=== PATIENT | female | born 1950 | race Caucasian/White ===

== ENCOUNTER 2016-09-02 09:27 | Inpatient (IN) ==
[2016-09-02] MEDS ORDERED: ONDANSETRON 4 MG/2 ML VIAL IV PRN (12:08)
[2016-09-02] MEDS ORDERED: ZALEPLON 5 MG CAPSULE PO PRN (12:08)
[2016-09-02] MEDS ORDERED: MAGNESIUM HYDROXIDE SUSP 30 ML UDCUP PO PRN (12:08)
[2016-09-02] MEDS ORDERED: MORPHINE 2 MG/1 ML SYRINGE IV PRN (12:08)
--- NOTE | 2016-09-02 14:17 | EKG Report ---
Stationary ECG Study [facility] Test Date: 09/02/2016 2:18:11 PM Pat Name: NATHAN JAMES Department: Room: 336 Gender: F Etl Database Developer: : [id number] Requested by: Zaheer Olguin Order Number: [id number] Reading MD: SANIA JEAN Intervals [place] Rate: 61 P: 61 DE: 146 QRS: 41 QRSD: 114 T: 68 QT: 479 QTc: 482 Interpretive Statements SINUS RHYTHM PROBABLE INFERIOR MYOCARDIAL INFARCTION, PROBABLY OLD WITH POSTERIOR EXTENSION Electronically Signed On 09-02-16 17:24:06 CDT by SANIA JEAN [email or web address]
[2016-09-02 14:36] LABS: Basophils # 0.1 10*3/uL (0.0-0.2); Basophils % 0.7 % (0.0-0.8); Eosinophils # 0.2 10*3/uL (0.0-0.87); Eosinophils % 2.2 % (0.00-10.9); Hematocrit 34.7 VOL% (35.7-47.0); Immature Granulocytes % 0.4 %; Immature Granulocytes Absolute 0.04 #; Lymphocytes # 2.6 10*3/uL (1.4-4.0); Lymphocytes % 27.4 % (21.3-54.2); Mean Corpuscular HGB Conc 31.7 GM/DL (32-36); Mean Corpuscular Hemoglobin 25 PG (27-34); Mean Corpuscular Volume 79.8 FL (87-102); Mean Platelet Volume 9.1 FL (9.6-12.0); Monocytes # 0.9 10*3/uL (0.11-0.8); Monocytes % 9.5 % (1.7-12.7); Neutrophils # 5.8 10*3/uL (1.4-7.4); Neutrophils % 59.8 % (38.7-73.9); Platelet Count 643 T/CUMM (130-400); Red Blood Count 4.35 MC/CUMM (3.8-5.5); Red Cell Distribution Width 19.4 % (9.3-17.3); White Blood Count 9.6 T/CUMM (4-12)
[2016-09-02 14:46] LABS: PT Patient Result 10.5 SECS
[2016-09-02 15:02] LABS: Alanine Aminotransferase 19 U/L (13-56); Albumin 2.3 G/DL (3.4-5.0); Alkaline Phosphatase 220 U/L (45-117); Aspartate Amino Transferase 21 U/L (0-37); Bilirubin,Total < 0.39 MG/DL (0.2-1.0); Blood Urea Nitrogen 21 MG/DL (7-18); Calcium 8.8 MG/DL (8.5-10.1); Glucose 109 MG/DL (74-106); Osmolality,Calculated 273.1 MOS/KG (273-304); Potassium 3.3 MMOL/L (3.5-5.1); Sodium 135 MMOL/L (136-145); Total Protein 6.4 G/DL (6.4-8.3)
[2016-09-02 15:18] LABS: Apearance,Urine CLOUDY (Clear); Bacteria,Urine Many /HPF (Few); Bilirubin,Urine Negative (Negative); Blood, Urine Moderate mg/dL (Negative); Glucose,Urine (UA) Negative (Negative); Ketones,Urine Negative (Negative); Mucus,Urine Occasional /LPF (Occasional); Nitrite,Urine Negative (Negative); Protein,Urine 100 MG/DL; RBC,Urine 56 /HPF (0-4); Squamous Epithelial Cell,Urine Occasional /HPF (0-10); Urine Color Yellow (Yellow); Urine Specific Gravity 1.012 (1.001-1.035); Urine Urobilinogen < 2.0 EU/DL (0.2-1.0); WBC,Urine 7 /HPF (0-6)
--- NOTE | 2016-09-02 16:17 | Hospitalist Consult Note ---
Assessment and Plan (1) Closed right hip fracture Status: Acute Current Visit: Yes Qualifiers: Encounter type: initial encounter Qualified Code(s): S72.001A - Fracture of unspecified part of neck of right femur, initial encounter for closed fracture (2) Atherosclerotic vascular disease Status: Chronic Assessment and plan: History of left carotid endarterectomy with total occlusion of the right carotid. Possible remote cerebrovascular accident with residual seizure disorder under active treatment. She does have mild cognitive impairment suggesting a possible early vascular dementia. Current Visit: Yes (3) Anemia Status: Chronic Assessment and plan: Mildly diminished hemoglobin level however there appears to be reactive thrombocytosis raising concerns about possible iron deficiency. She does report polypectomy at colonoscopy done approximately 1 year ago but also describes a one-year history of weight loss. Current Visit: Yes History of Present Illness - Consult Narrative History of present illness: Ms. Davidson is a 66 year old female transferred to the orthopedic service. Patient is a somewhat suspect historian but apparently she sustained a fall about 2 months ago records indicate that she apparently had imaging of her pelvis performed in June 2016 without positive finding she states that she was subsequently not able to walk and on reimaging with CT scan on 01 September was found to have a fracture of the right hip. Patient is unclear regarding how she came to fall initially but denies a subsequent fall. She has not been a patient at this facility previously. She is actively treated with lipid- lowering agents. She is on a beta-gurmeet for a "heart problem" with her EKG showing a short MN interval with the patient however denying any palpitations. She has a chronic seizure disorder apparently related to ischemic vascular disease with complete previous left carotid endarterectomy and residual total occlusion of the right carotid. She reports that upper endoscopy approximately a year ago without positive findings and a colonoscopy at the same time with removal of small polyps. She states she has had weight loss of an undetermined amount but denies any melena or hematochezia. At the outside facility the patient showed a microcytic anemia which is remained stable. She has hypokalemia on hydrochlorothiazide. Initially her creatinine was elevated but with rehydration it has normalized. CC: Zaheer Mauricio Jr., - Home Medications and Allergies Home Medications: Home Medications Medication Instructions Recorded Confirmed Type Aspirin [Ecotrin] 81 mg PO DAILY 09/02/16 09/02/16 History Cetirizine Tab [ZyrTEC Tab] 10 mg PO BID PRN 09/02/16 09/02/16 History Clopidogrel Bisulfate [Clopidogrel] 75 mg PO DAILY 09/02/16 09/02/16 History Colesevelam [Welchol] 1,875 mg PO BID 09/02/16 09/02/16 History Cyanocobalamin/Folic AC/Vit B6 [B 1 each PO DAILY 09/02/16 09/02/16 History Complex-Folic Acid Tablet] Gemfibrozil [Gemfibrozil] 600 mg PO BID 09/02/16 09/02/16 History Linaclotide [Linzess] 145 mcg PO DAILY 09/02/16 09/02/16 History Metoprolol Succinate [Metoprolol 25 mg PO BID 09/02/16 09/02/16 History Succinate] Omeprazole [Omeprazole] 40 mg PO DAILY 09/02/16 09/02/16 History Phenytoin ER Cap [Dilantin Cap] 100 mg PO QID 09/02/16 09/02/16 History Potassium Chloride [Potassium 20 meq PO TID 09/02/16 09/02/16 History Chloride] Pravastatin Sodium [Pravastatin 80 mg PO DAILY 09/02/16 09/02/16 History Sodium] Zolpidem Tartrate [Zolpidem 10 mg PO BEDTIME 09/02/16 09/02/16 History Tartrate] cloNIDine HCl [Clonidine HCl] 0.2 mg PO BID PRN 09/02/16 09/02/16 History diazePAM [Diazepam] 10 mg PO BID 09/02/16 09/02/16 History hydroCHLOROthiazide 12.5 mg PO DAILY 09/02/16 09/02/16 History [Hydrochlorothiazide] raNITIdine HCl [Ranitidine HCl] 300 mg PO DAILY 09/02/16 09/02/16 History Allergies/Adverse Reactions: Allergies Allergy/AdvReac Type Severity Reaction Status Date / Time Penicillins Allergy Verified 09/02/16 14:24 Medical,Surgical,& Family Hx - Medical History Cardio: History of: Cerebrovascular Disease (Presumptive remote cerebrovascular accident with residual seizure disorder.), Hypertension Neurology: History of: Seizures Gastrointestinal: History of: Hepatitis (Hepatitis B), Polyps Other: History of: Miscellaneous Medical Problems (Lipid disorder with atherosclerotic vascular disease) - Surgical History Cardiac Surgeries: Sugical HX of: Carotid Endarterectomy (Left sided) Abdominal Surgeries: Surgical HX of: Colonoscopy (1 year ago), EGD (1 year ago) Reproductive Surgeries: Surgical HX of;: Hysterectomy - Social History Smoking Status: Current every day smoker (Approximately 1 pack per day) Frequency of Alcohol Use: None Lives With:: Sibling Functional capacity: independent ambulation - Constitutional Constitutional: Present: weight loss - Cardiovascular Cardiovascular: Absent: chest pain with activity, claudication, dyspnea on exertion, edema, palpitations - Respiratory Respiratory: Absent: cough, hemoptysis, wheezing - Gastrointestinal Gastrointestinal: Present: constipation. Absent: abdominal pain, coffee ground emesis, diarrhea, dysphagia, hematemesis, hematochezia, melena, nausea, vomiting - Genitourinary Genitourinary: Absent: dysuria, hematuria - Psychiatric Psychiatric: Present: confusion, memory loss Exam - Constitutional Vitals: Period Temp Pulse Resp BP Sys/Kirkpatrick Pulse Ox Last 24 Hr 97.7 F-97.8 F 61-63 15-18 140-153/70-80 95-98 General appearance: normal weight - Head Head exam: Present: atraumatic - Neck Neck exam: Absent: lymphadenopathy, thyromegaly - Respiratory Respiratory exam: Present: clear to auscultation bilaterally. Absent: rales, rhonchi, wheezes - Cardiovascular Cardiovascular exam: Present: regular rate and rhythm, other (Diminished pedal pulse right greater than left). Absent: carotid bruit - GI/Abdominal GI/Abdominal exam: Absent: normal bowel sounds, ascites, organomegaly, tenderness - Extremities Exam Extremities exam: Present: other (Marked muscle atrophy). Absent: edema - Neurological Exam Neurological exam: Present: alert, oriented X3 Results - Labs CBC & BMP: 09/02/16 14:23 09/02/16 14:23 Labs: Globulin 4.1 Alkaline phosphatase 220 Urinalysis positive red blood cells and protein - Impressions Short MN interval without delta wave.
[2016-09-02] MEDS: POTASSIUM CHLORIDE INJ 40 MEQ in DEXTROSE 5% LACTATED RINGERS 1,000 ML IV SCH (16:25)
[2016-09-02] MEDS ORDERED: CETIRIZINE 10 MG TABLET PO PRN (16:31)
[2016-09-02 17:45] LABS: % Iron Saturation 7.2 % (18-50)
[2016-09-02] MEDS: PHENYTOIN ER 100 MG CAPSULE PO SCH ×2 (17:52→20:50)
--- NOTE | 2016-09-02 18:29 | Orthopedic History & Physical ---
Assessment and Plan (1) Displaced fracture of right femoral neck Status: Chronic Current Visit: Yes History of Present Illness Chief complaint: Right hip pain History of present illness: Ms. Davidson is a 66 year old female who fell approximately 2 months ago. She states that the initial workup was negative. However because of persistent pain , she was hospitalized and was found to have hypokalemia to 2.3. X-rays during that admission demonstrated displaced femoral neck fracture. She has been transferred for treatment of her displaced femoral neck fracture. The patient has a history of a previous left displaced femoral neck fracture which I treated with a bipolar hemiarthroplasty. She has not had any problems with that hip. She has been able to return to independent ambulation up until 2 months ago. The patient states that she has had to be lifted up by her neighbors and then spent the weekend in a wheelchair in [place] for a niece' s . She has a history of a previous CVA. Home Medications Medication Instructions Recorded Confirmed Type Aspirin [Ecotrin] 81 mg PO DAILY 09/02/16 09/02/16 History Cetirizine Tab [ZyrTEC Tab] 10 mg PO BID PRN 09/02/16 09/02/16 History Clopidogrel Bisulfate [Clopidogrel] 75 mg PO DAILY 09/02/16 09/02/16 History Colesevelam [Welchol] 1,875 mg PO BID 09/02/16 09/02/16 History Cyanocobalamin/Folic AC/Vit B6 [B 1 each PO DAILY 09/02/16 09/02/16 History Complex-Folic Acid Tablet] Gemfibrozil [Gemfibrozil] 600 mg PO BID 09/02/16 09/02/16 History Linaclotide [Linzess] 145 mcg PO DAILY 09/02/16 09/02/16 History Metoprolol Succinate [Metoprolol 25 mg PO BID 09/02/16 09/02/16 History Succinate] Omeprazole [Omeprazole] 40 mg PO DAILY 09/02/16 09/02/16 History Phenytoin ER Cap [Dilantin Cap] 100 mg PO QID 09/02/16 09/02/16 History Potassium Chloride [Potassium 20 meq PO TID 09/02/16 09/02/16 History Chloride] Pravastatin Sodium [Pravastatin 80 mg PO DAILY 09/02/16 09/02/16 History Sodium] Zolpidem Tartrate [Zolpidem 10 mg PO BEDTIME 09/02/16 09/02/16 History Tartrate] cloNIDine HCl [Clonidine HCl] 0.2 mg PO BID PRN 09/02/16 09/02/16 History diazePAM [Diazepam] 10 mg PO BID 09/02/16 09/02/16 History hydroCHLOROthiazide 12.5 mg PO DAILY 09/02/16 09/02/16 History [Hydrochlorothiazide] raNITIdine HCl [Ranitidine HCl] 300 mg PO DAILY 09/02/16 09/02/16 History Allergies Allergy/AdvReac Type Severity Reaction Status Date / Time Penicillins Allergy Verified 09/02/16 14:24 12 point system: reviewed and no additional remarkable complaints except as stated Medical,Surgical,& Family Hx - Medical History Cardio: History of: Cerebrovascular Disease (Presumptive remote cerebrovascular accident with residual seizure disorder.), Hypertension Neurology: History of: Cerebrovascular Accident, Seizures HEENT: History of: Eye Problem (glasses), Dental Problems (dentures) Endocrine: History of: Dyslipidemia Gastrointestinal: History of: Hepatitis (Hepatitis B), Polyps Other: History of: Miscellaneous Medical Problems (Lipid disorder with atherosclerotic vascular disease) - Surgical History Cardiac Surgeries: Sugical HX of: Carotid Endarterectomy (Left sided) HEENT Surgeries: Surgical HX of: Carotid Endarterectomy (Left sided) Abdominal Surgeries: Surgical HX of: Colonoscopy (1 year ago), EGD (1 year ago) Reproductive Surgeries: Surgical HX of;: Hysterectomy - Family History Family History: Reports;: Family Cancer (mother), Family Heart Disease ( grandmother), Family Hypertension (mother), Family Stroke (sister) - Social History Smoking Status: Current every day smoker (Approximately 1 pack per day) Frequency of Alcohol Use: None Type of Drug Use: None Exam - Constitutional Vitals: Period Temp Pulse Resp BP Sys/Kirkpatrick Pulse Ox Last 24 Hr 97.7 F-97.8 F 61-63 15-18 140-153/70-80 95-98 Alert and oriented. Lungs clear to auscultation Heart regular rate and rhythm Abdomen soft Right lower extremity shortened and externally rotated and irritable to logroll. Skin, sensation murmurs pulses grossly intact to her foot. X-rays AP lateral right hip from [facility] demonstrates a displaced femoral neck fracture with sclerosis consistent with a subacute to chronic femoral neck fracture. Impression: Right displaced femoral neck fracture Plan: I have advised a right total hip replacement given her young age and success with the prior procedure. Risks and benefits of the procedure were discussed. All questions were answered to her satisfaction. We will plan proceeding tomorrow. Dr. Brar from the hospitalist service is already evaluated her and has made recommendations. Results - Labs CBC & BMP: 09/02/16 14:23 09/02/16 14:23
--- NOTE | 2016-09-02 18:34 | XRay Report ---
Single view of the chest. Indication: Shortness of breath. Comparison: April 16, 2013. The heart and mediastinal contours are unremarkable. The pulmonary vasculature is normal. There is no consolidation, pneumothorax, or pleural effusion. The osseous structures are unremarkable. Impression: No abnormality is seen. PROCEDURE INTERPRETED AT [facility] DEPARTMENT OF RADIOLOGY Final Report Signed by: Dr. Thuy Argueta
--- NOTE | 2016-09-02 19:10 | XRay Report ---
AP pelvis. Indication: Femoral neck fracture. Comparison: Outside study from earlier today. Previous AP pelvis from April 17, 2013. There is a right femoral neck fracture. There is slight superior displacement of the distal fracture fragment. The femoral head remains seated within the acetabulum. There has been a left total hip replacement. Iliac vascular stents are visible. Phleboliths are seen within the pelvis. The osseous structures are diffusely demineralized. Impression: Right femoral neck fracture. PROCEDURE INTERPRETED AT [facility] DEPARTMENT OF RADIOLOGY Final Report Signed by: Dr. Thuy Argueta
[2016-09-02] MEDS: GEMFIBROZIL 600 MG TABLET PO SCH (20:50)
[2016-09-02] MEDS: POTASSIUM CHLORIDE 20 MEQ TABLET PO SCH (20:50)
[2016-09-02] MEDS: DIAZEPAM 5 MG TABLET PO SCH (20:50)
[2016-09-02] MEDS: ZALEPLON 5 MG CAPSULE PO SCH (20:50)
[2016-09-02] MEDS: METOPROLOL SUCCINATE XL 25 MG TABLET PO SCH (20:50)
[2016-09-03] MEDS: POTASSIUM CHLORIDE INJ 40 MEQ in DEXTROSE 5% LACTATED RINGERS 1,000 ML IV SCH ×2 (04:45→22:44)
[2016-09-03 06:09] LABS: Basophils # 0.1 10*3/uL (0.0-0.2); Basophils % 0.8 % (0.0-0.8); Eosinophils # 0.4 10*3/uL (0.0-0.87); Eosinophils % 4.7 % (0.00-10.9); Hematocrit 36.1 VOL% (35.7-47.0); Hemoglobin 11.7 GM/DL (12.0-16.0); Immature Granulocytes % 0.4 %; Immature Granulocytes Absolute 0.03 #; Lymphocytes % 26.5 % (21.3-54.2); Mean Corpuscular HGB Conc 32.4 GM/DL (32-36); Mean Corpuscular Hemoglobin 26 PG (27-34); Mean Corpuscular Volume 78.6 FL (87-102); Mean Platelet Volume 9.3 FL (9.6-12.0); Monocytes # 0.7 10*3/uL (0.11-0.8); Monocytes % 9.2 % (1.7-12.7); Neutrophils # 4.3 10*3/uL (1.4-7.4); Neutrophils % 58.4 % (38.7-73.9); Platelet Count 645 T/CUMM (130-400); Red Blood Count 4.59 MC/CUMM (3.8-5.5); Red Cell Distribution Width 19.5 % (9.3-17.3); White Blood Count 7.4 T/CUMM (4-12)
[2016-09-03 06:49] LABS: Calcium 9.3 MG/DL (8.5-10.1); Osmolality,Calculated 277.5 MOS/KG (273-304); Potassium 3.2 MMOL/L (3.5-5.1)
--- NOTE | 2016-09-03 08:44 | Hospitalist Progress Note ---
Assessment and Plan (1) Closed right hip fracture Status: Acute Current Visit: Yes Qualifiers: Encounter type: initial encounter Qualified Code(s): S72.001A - Fracture of unspecified part of neck of right femur, initial encounter for closed fracture (2) Atherosclerotic vascular disease Status: Chronic Assessment and plan: History of left carotid endarterectomy with total occlusion of the right carotid. Possible remote cerebrovascular accident with residual seizure disorder under active treatment. She does have mild cognitive impairment suggesting a possible early vascular dementia. Current Visit: Yes (3) Anemia Status: Chronic Assessment and plan: Mildly diminished hemoglobin level however there appears to be reactive thrombocytosis raising concerns about possible iron deficiency. She does report polypectomy at colonoscopy done approximately 1 year ago but also describes a one-year history of weight loss. Post admission iron profile is consistent with iron deficiency. Current Visit: Yes Hospitalist: Subjective Interval history: 58-year-old female transferred from an outside hospital to the orthopedic service for management of a subacute fracture of the right hip. She is chronically hypertensive with atherosclerotic cardiovascular disease with previous carotid endarterectomies. She is on long-term hydrochlorothiazide without potassium replacement and has shown consistent hypokalemia both here and at the referring hospital. She is for surgery today. Her mental status is unchanged from last evening's exam. Exam - Constitutional Vitals: Period Temp Pulse Resp BP Sys/Kirkpatrick Pulse Ox Last 24 Hr 97.1 F-97.8 F 61-101 15-19 140-209/70-140 95-100 General appearance: normal weight, no acute distress - Respiratory Respiratory exam: Present: clear to auscultation bilaterally - Cardiovascular Cardiovascular exam: Present: regular rate and rhythm - GI/Abdominal GI/Abdominal exam: Present: normal bowel sounds, soft - Extremities Exam Extremities exam: Absent: edema - Neurological Exam Neurological exam: Present: alert Results - Labs CBC & BMP: 09/03/16 05:53 09/03/16 05:53 Labs: Iron 19 total iron-binding capacity 265% saturation 7 - Diagnostic Findings Procedure: Chest x-ray: report reviewed by me (Normal heart size clear lung zendejas)
[2016-09-03] MEDS: GEMFIBROZIL 600 MG TABLET PO SCH ×2 (08:59→20:29)
[2016-09-03] MEDS: PRAVASTATIN 40 MG TABLET PO SCH (08:59)
[2016-09-03] MEDS: ASPIRIN EC 81 MG TABLET PO SCH (08:59)
[2016-09-03] MEDS: POTASSIUM CHLORIDE 20 MEQ TABLET PO SCH (08:59)
[2016-09-03] MEDS: PHENYTOIN ER 100 MG CAPSULE PO SCH ×4 (08:59→20:29)
[2016-09-03] MEDS: PANTOPRAZOLE 40 MG TABLET PO SCH (09:00)
[2016-09-03] MEDS: DIAZEPAM 5 MG TABLET PO SCH ×2 (09:00→20:30)
[2016-09-03] MEDS: METOPROLOL SUCCINATE XL 25 MG TABLET PO SCH ×2 (09:00→20:30)
--- NOTE | 2016-09-03 09:05 | Orthopedic Progress Note ---
Assessment and Plan (1) Displaced fracture of right femoral neck Status: Chronic Current Visit: Yes Orthopedics - Subjective Interval history: Alert and oriented. She is complaining of left hip pain. Right lower extremity is still shortened and externally rotated. She is neurovascularly unchanged. Plan: Plan proceeding with a total hip arthroplasty. I have recommended a hybrid CARMELLA. All questions were answered. Exam - Constitutional Vitals: Period Temp Pulse Resp BP Sys/Kirkpatrick Pulse Ox Last 24 Hr 97.1 F-97.8 F 61-101 15-19 140-209/70-140 95-100 Results - Labs CBC & BMP: 09/03/16 05:53 09/03/16 05:53
[2016-09-03] MEDS ORDERED: VANCOMYCIN INJ 1,000 MG in SODIUM CHLORIDE 0.9% 250 ML IV ONE (11:00)
[2016-09-03] MEDS ORDERED: ceFAZolin 2,000 MG in PREMIX 1 EACH IV ONE (11:00)
[2016-09-03] MEDS ORDERED: BACITRACIN OINT 0.9 GM PACK TOP ONE (12:18)
[2016-09-03] MEDS ORDERED: oxyCODONE IR 5 MG TABLET PO PRN ×2 (14:04)
[2016-09-03] MEDS ORDERED: diphenhydrAMINE CAP 25 MG CAPSULE PO PRN (14:04)
[2016-09-03] MEDS ORDERED: MAGNESIUM HYDROXIDE SUSP 30 ML UDCUP PO PRN (14:04)
--- NOTE | 2016-09-03 14:12 | Operative Note ---
Date of procedure: 09/03/16 Procedure: DIAGNOSIS: Right chronic femoral neck fracture PROCEDURE: Right total hip arthroplasty (CPT#65085) SURGEON: Hang ANESTHESIA: Spinal PROCEDURE and FINDINGS: After adequate anesthesia was induced, the patient was placed in lateral decubitus position. Left lower extremities prepped and draped in usual sterile fashion. Posteriolateral approach to the hip was made. Skin, subcutaneous tissue and deep fascia was incised longitudinally. Gluteus osbaldo muscle belly was split in line with its fibers. Piriformis, external rotators and capsule were taken down as a single layer as an inverted L shaped capsulotomy. Hip was dislocated. Templated femoral neck cut was made. Acetabulum was prepared by sequentially reaming to 47 mm. A 48 mm Continuum acetabular shell was press-fit with excellent stability. 1 6.5 millimeter screw was placed with an excellent bite. 32 mm elevated rim longevity liner was placed with a dome hole plug. Femur was prepared sequentially with the box osteotome, canal finder and sequential broaches to 13. Components were trialed. A size 13 Versys Advocate stem was cemented in place using Palacos cement and modern cementing techniques. A distal centralizer and cement restrictor were used. A 32+0 mm head was placed. The component was stable posteriorly and anteriorly. Capsule was repaired with #5 Tycron suture to the greater trochanter. Deep fascia was closed with 0 Vicryl [id number] suture. Subcutaneous tissue was closed deep with a 2-0 Vicryl runner and superficially with 3-0 interrupted buried sutures. Skin was closed with lori. Bacitracin and a sterile occlusive dressing was applied. Surgeon / Physician: Zaheer Mauricio Jr. Results - Labs CBC & BMP: 09/03/16 05:53 09/03/16 05:53 Discharge Plan - Discharge Medications No Action Potassium Chloride [Potassium Chloride] 20 meq PO TID Phenytoin ER Cap [Dilantin Cap] 100 mg PO QID Linaclotide [Linzess] 145 mcg PO DAILY diazePAM [Diazepam] 10 mg PO BID Colesevelam [Welchol] 1,875 mg PO BID Aspirin [Ecotrin] 81 mg PO DAILY Zolpidem Tartrate [Zolpidem Tartrate] 10 mg PO BEDTIME cloNIDine HCl [Clonidine HCl] 0.2 mg PO BID PRN PRN Reason: Blood Pressure-Increased hydroCHLOROthiazide [Hydrochlorothiazide] 12.5 mg PO DAILY Gemfibrozil [Gemfibrozil] 600 mg PO BID Metoprolol Succinate [Metoprolol Succinate] 25 mg PO BID Cyanocobalamin/Folic AC/Vit B6 [B Complex-Folic Acid Tablet] 1 each PO DAILY raNITIdine HCl [Ranitidine HCl] 300 mg PO DAILY Omeprazole [Omeprazole] 40 mg PO DAILY Pravastatin Sodium [Pravastatin Sodium] 80 mg PO DAILY Cetirizine Tab [ZyrTEC Tab] 10 mg PO BID PRN PRN Reason: Allergy Symptoms Clopidogrel Bisulfate [Clopidogrel] 75 mg PO DAILY - Follow Up or Referral - Forms/Instructions
[2016-09-03] MEDS ORDERED: MIDAZOLAM 2 MG/2 ML VIAL ONE (14:17)
[2016-09-03] MEDS ORDERED: fentaNYL 100 MCG/2 ML VIAL ONE (14:17)
[2016-09-03] MEDS ORDERED: ACETAMINOPHEN 1,000 MG/100 ML VIAL IV ONE (14:18)
[2016-09-03] MEDS ORDERED: KETAMINE 500 MG/10 ML VIAL ONE (14:18)
--- NOTE | 2016-09-03 14:21 | Anesthesia Post-Op ---
Anesthesia Post OP - Post Ansesthetic Evaluation Patient seen in post op: Yes Resp: within normal limits CV: within normal limits Mental: within normal limits Temp: within normal limits Nlrd-Iy-[id number]: within normal limits Nausea and Vomiting: within normal limits Pain: within normal limits
[2016-09-03] MEDS ORDERED: KETOROLAC 30 MG/1 ML VIAL ONE (14:32)
[2016-09-03] MEDS: KETOROLAC 30 MG/1 ML VIAL IV SCH ×2 (14:34→20:29)
[2016-09-03] MEDS ORDERED: hydrALAZINE 20 MG/1 ML VIAL IV ONE (14:40)
[2016-09-03] MEDS ORDERED: hydrALAZINE 20 MG/1 ML VIAL ONE (14:42)
--- NOTE | 2016-09-03 15:28 | Orthopedic Progress Note ---
Assessment and Plan (1) Displaced fracture of right femoral neck Status: Chronic Current Visit: Yes Orthopedics - Subjective Interval history: Ms. Davidson was seen in the recovery room. She appears to be comfortable. Her spinal anesthetic is still working. Her dressing is clean, dry and intact. Plan: Continue per orders. Exam - Constitutional Vitals: Period Temp Pulse Resp BP Sys/Kirkpatrick Pulse Ox Last 24 Hr 97.1 F-98.8 F 63-101 12-19 112-209/76-140 97-100 Results - Labs CBC & BMP: 09/03/16 05:53 09/03/16 05:53
--- NOTE | 2016-09-03 16:44 | XRay Report ---
Right hip, single portable view. Indication: Postoperative. There has been a right total hip replacement. Hardware is in good position without evidence of dislocation. Air is seen in the soft tissues and there are surgical drains and skin lori projecting over the soft tissues as well. Impression: Expected postoperative appearance. PROCEDURE INTERPRETED AT [facility] DEPARTMENT OF RADIOLOGY Final Report Signed by: Dr. Thuy Argueta
[2016-09-03] MEDS: MORPHINE 2 MG/1 ML SYRINGE IV PRN ×2 (17:27→22:44)
[2016-09-03] MEDS: ACETAMINOPHEN 500 MG TABLET PO SCH (19:05)
[2016-09-03] MEDS: ZALEPLON 5 MG CAPSULE PO SCH (20:30)
[2016-09-03] MEDS: DOCUSATE SODIUM 100 MG CAPSULE PO SCH (20:30)
[2016-09-04] MEDS: ACETAMINOPHEN 500 MG TABLET PO SCH ×3 (00:26→12:18)
[2016-09-04] MEDS: POTASSIUM CHLORIDE INJ 40 MEQ in DEXTROSE 5% LACTATED RINGERS 1,000 ML IV SCH (00:28)
[2016-09-04] MEDS: KETOROLAC 30 MG/1 ML VIAL IV SCH ×2 (02:04→09:08)
[2016-09-04 05:01] LABS: Basophils % 0.2 % (0.0-0.8); Eosinophils # 0.2 10*3/uL (0.0-0.87); Eosinophils % 2.2 % (0.00-10.9); Hematocrit 31.8 VOL% (35.7-47.0); Hemoglobin 9.9 GM/DL (12.0-16.0); Immature Granulocytes % 0.5 %; Immature Granulocytes Absolute 0.04 #; Lymphocytes # 1.1 10*3/uL (1.4-4.0); Mean Corpuscular HGB Conc 31.1 GM/DL (32-36); Mean Corpuscular Hemoglobin 25 PG (27-34); Mean Corpuscular Volume 79.9 FL (87-102); Mean Platelet Volume 9.6 FL (9.6-12.0); Monocytes # 0.6 10*3/uL (0.11-0.8); Monocytes % 6.9 % (1.7-12.7); Neutrophils # 6.6 10*3/uL (1.4-7.4); Neutrophils % 77.2 % (38.7-73.9); Platelet Count 615 T/CUMM (130-400); Red Blood Count 3.98 MC/CUMM (3.8-5.5); Red Cell Distribution Width 19.6 % (9.3-17.3); White Blood Count 8.5 T/CUMM (4-12)
[2016-09-04 05:38] LABS: Calcium 8.5 MG/DL (8.5-10.1); Osmolality,Calculated 275.7 MOS/KG (273-304); Potassium 3.1 MMOL/L (3.5-5.1)
--- NOTE | 2016-09-04 08:55 | Hospitalist Progress Note ---
Assessment and Plan (1) Closed right hip fracture Status: Acute Assessment and plan: Hip replacement September 03 Current Visit: Yes Qualifiers: Encounter type: initial encounter Qualified Code(s): S72.001A - Fracture of unspecified part of neck of right femur, initial encounter for closed fracture (2) Atherosclerotic vascular disease Status: Chronic Assessment and plan: History of left carotid endarterectomy with total occlusion of the right carotid. Possible remote cerebrovascular accident with residual seizure disorder under active treatment. She does have mild cognitive impairment suggesting a possible early vascular dementia. Current Visit: Yes (3) Anemia Status: Chronic Assessment and plan: Mildly diminished hemoglobin level however there appears to be reactive thrombocytosis raising concerns about possible iron deficiency. She does report polypectomy at colonoscopy done approximately 1 year ago but also describes a one-year history of weight loss. Post admission iron profile is consistent with iron deficiency. Current Visit: Yes Hospitalist: Subjective Interval history: 66-year-old female transferred outside facility to the orthopedic service for management of subacute fracture of the right hip chronic medical problems consist of hypertension atherosclerotic cardiovascular disease with previous carotid endarterectomies. She has substantial total body potassium depletion associated with use of chronic thiazide diuretics. She underwent hip replacement on 03 September. Her vital signs are stable she is afebrile. Exam - Constitutional Vitals: Period Temp Pulse Resp BP Sys/Kirkpatrick Pulse Ox Last 24 Hr 97.2 F-98.8 F 77-117 12-20 101-202/60-117 92-100 General appearance: normal weight - Respiratory Respiratory exam: Present: clear to auscultation bilaterally. Absent: rales, rhonchi, wheezes - Cardiovascular Cardiovascular exam: Present: regular rate and rhythm - GI/Abdominal GI/Abdominal exam: Present: normal bowel sounds. Absent: distended, tenderness - Extremities Exam Extremities exam: Absent: edema - Neurological Exam Neurological exam: Present: alert, oriented X3 - Psychiatric Psychiatric exam: Absent: normal affect Results - Labs CBC & BMP: 09/04/16 03:32 09/04/16 03:32
[2016-09-04] MEDS ORDERED: CLOPIDOGREL 75 MG TABLET PO SCH (09:00)
[2016-09-04] MEDS: FONDAPARINUX 2.5 MG/0.5 ML SYRINGE SUBCUT SCH (09:09)
[2016-09-04] MEDS: PRAVASTATIN 40 MG TABLET PO SCH (09:09)
[2016-09-04] MEDS: DIAZEPAM 5 MG TABLET PO SCH ×2 (09:09→21:41)
[2016-09-04] MEDS: PANTOPRAZOLE 40 MG TABLET PO SCH (09:09)
[2016-09-04] MEDS: ASPIRIN EC 81 MG TABLET PO SCH (09:09)
[2016-09-04] MEDS: DOCUSATE SODIUM 100 MG CAPSULE PO SCH ×2 (09:09→21:41)
[2016-09-04] MEDS: PHENYTOIN ER 100 MG CAPSULE PO SCH ×4 (09:11→21:41)
[2016-09-04] MEDS: POTASSIUM CHLORIDE 20 MEQ/15 ML UDCUP PO SCH ×4 (09:13→21:42)
[2016-09-04] MEDS: METOPROLOL SUCCINATE XL 25 MG TABLET PO SCH ×2 (09:13→21:41)
[2016-09-04] MEDS: GEMFIBROZIL 600 MG TABLET PO SCH ×2 (09:13→21:41)
[2016-09-04] MEDS: MORPHINE 2 MG/1 ML SYRINGE IV PRN ×3 (09:45→21:38)
--- NOTE | 2016-09-04 10:12 | Orthopedic Progress Note ---
Assessment and Plan (1) Displaced fracture of right femoral neck Status: Chronic Current Visit: Yes Orthopedics - Subjective Interval history: comfortable. rle nv ok. dressing dry. mobilize with therapy. agree with continued K+ supplementation. discharge planning. Exam - Constitutional Vitals: Period Temp Pulse Resp BP Sys/Kirkpatrick Pulse Ox Last 24 Hr 97.2 F-98.8 F 77-117 12-20 101-202/60-117 92-100 Results - Labs CBC & BMP: 09/04/16 03:32 09/04/16 03:32
--- NOTE | 2016-09-04 14:52 | Case Mgmt Physician Query Form ---
TB Signs and Symptoms Screening ([place]) INSTRUCTIONS: To be completed annually on residents/staff with a significant Tuberculin Skin Test (TST) upon admission/hire or a prior significant TST. To be completed on all staff at hire. Please respond to each listed symptom with an (X) in either the "YES" or "NO" box. Do you currently have any of the following symptoms: YES NO ( ) (x ) A cough If yes, is it: ( ) Productive ( ) Non- productive ( ) (x ) Hemoptysis (spitting up blood) ( ) ( x) Chest pains ( ) ( x) Weight Loss ( ) (x ) Fever ( ) (x ) Night Sweats ( ) ( x) Weakness ( ) ( x) Loss of Appetite ( ) ( x) Difficulty Breathing If you answered YES" to any of the above questions, how long have symptoms been present? Comments: If you have any questions, please contact me. Thank you, Pamela Cristobal RN, Office : [phone] Email : [email or web address]
--- NOTE | 2016-09-04 18:27 | Pathology Report from [facility] ---
[facility] [place] : [id number] PATIENT NAME : Nathan James ORDERING DR : ANGELA ECHOLS MD CLINICAL HX: Displaced fracture of right femoral neck POST-OP DX: Same SPECIMEN INFO: Right hip bone and tissue GROSS DESCRIPTION: The specimen is received in formalin labeled with the patients name and consists of a fractured femoral head which measures 4.2 x 4.2 x 4.0 cm. The articular surface is smooth and plata with no subchondral eburnation seen. The area of fracture is shaggy and hyperemic with no softening appreciated. Received separately in the container is a portion of femoral neck measuring 3.7 x 2.5 x 0.8 cm. [employer] tissue is submitted in one cassette following decalcification. 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 No evidence of malignancy by pancytokeratin and CD138 immunostains. COLLECTED DATE: 09/03/2016 [facility] REPORT DATE: 09/04/2016 ELECTRONICALLY SIGNED BY: Fátima Oleary III, M.D. 09/04/2016 - 14:07:53 GETACHEW
[2016-09-04] MEDS: CELECOXIB 200 MG CAPSULE PO SCH (21:41)
[2016-09-04] MEDS: ZALEPLON 5 MG CAPSULE PO SCH (21:41)
[2016-09-05 05:58] LABS: Basophils # 0.1 10*3/uL (0.0-0.2); Basophils % 0.4 % (0.0-0.8); Eosinophils # 0.6 10*3/uL (0.0-0.87); Eosinophils % 4.4 % (0.00-10.9); Hematocrit 31.5 VOL% (35.7-47.0); Immature Granulocytes % 0.6 %; Immature Granulocytes Absolute 0.08 #; Lymphocytes # 1.9 10*3/uL (1.4-4.0); Lymphocytes % 14.6 % (21.3-54.2); Mean Corpuscular HGB Conc 31.7 GM/DL (32-36); Mean Corpuscular Hemoglobin 26 PG (27-34); Mean Corpuscular Volume 80.8 FL (87-102); Mean Platelet Volume 9.6 FL (9.6-12.0); Monocytes % 7.8 % (1.7-12.7); Neutrophils # 9.3 10*3/uL (1.4-7.4); Neutrophils % 72.2 % (38.7-73.9); Platelet Count 585 T/CUMM (130-400); Red Cell Distribution Width 19.8 % (9.3-17.3); White Blood Count 12.9 T/CUMM (4-12)
[2016-09-05 06:36] LABS: Calcium 8.6 MG/DL (8.5-10.1); Osmolality,Calculated 278.5 MOS/KG (273-304)
--- NOTE | 2016-09-05 08:27 | Discharge Summary ---
Hospital Course - Hospital Course Hospital Course: Onel Davidson was transferred from [facility] with a chronic right femoral neck fracture. She received perioperative DVT and antimicrobial prophylaxis. She underwent an uncomplicated hybrid right total hip arthroplasty. She received physical therapy. She was discharged to [facility] swing bed in stable condition. The hospitalist service was consulted to manage her her medical problems perioperatively. She was admitted with hypokalemia and her potassium on discharge was 4.0. Diagnosis - Discharge Diagnosis (1) Displaced fracture of right femoral neck Status: Chronic Specialty Discharge - Follow Up or Referrals Follow up with: Zaheer Mauricio Jr., MD [Physician] - 10/02/16 8:15 am Discharge Plan - Discharge Data Disposition: Disch/Xfer to Snf Condition at Discharge: Stable Discharge Diet: advance to your usual diet Activity: ambulate only with your walker Hygiene: may shower Weight Bearing at Discharge: weight bear as tolerated Driving: not until seen by doctor - Discharge Medications New HYDROcodone/ACETAMIN 7.5-325 [Ringle 7.5-325] 2 tablet PO Q4H PRN tablet PRN Reason: Pain Severe (8-10) HYDROcodone/ACETAMIN 7.5-325 [Ringle 7.5-325] 1 tablet PO Q4H PRN tablet PRN Reason: Pain Moderate (4-7) Continue Potassium Chloride 20 meq PO TID Phenytoin ER Cap [Dilantin Cap] 100 mg PO QID Linaclotide [Linzess] 145 mcg PO DAILY diazePAM [Diazepam] 10 mg PO BID Colesevelam [Welchol] 1,875 mg PO BID Aspirin [Ecotrin] 81 mg PO DAILY Zolpidem Tartrate 10 mg PO BEDTIME cloNIDine HCl [Clonidine HCl] 0.2 mg PO BID PRN PRN Reason: Blood Pressure-Increased Gemfibrozil 600 mg PO BID Metoprolol Succinate 25 mg PO BID Cyanocobalamin/Folic AC/Vit B6 [B Complex-Folic Acid Tablet] 1 each PO DAILY raNITIdine HCl [Ranitidine HCl] 300 mg PO DAILY Omeprazole 40 mg PO DAILY Pravastatin Sodium 80 mg PO DAILY Cetirizine Tab [ZyrTEC Tab] 10 mg PO BID PRN PRN Reason: Allergy Symptoms Clopidogrel Bisulfate [Clopidogrel] 75 mg PO DAILY Discontinued hydroCHLOROthiazide [Hydrochlorothiazide] 12.5 mg PO DAILY - Follow Up or Referral Follow Up: Zaheer Mauricio Jr., MD [Physician] - 10/02/16 8:15 am - Forms/Instructions Additional Discharge Instructions: Posterior hip precautions for 3 months. Daily dry dressing changes. Arrange for walker and bedside commode for home use. Wear KISHOR hose for 1 month. Follow-up appointment in 4 weeks. Discontinue lori and Steri-Strip wound on September 16, 2016. Prescription for Ringle 7.5 with 30 tablets was written. Resume aspirin and Plavix. Get discharge instructions from the hospitalist service. Exam - Constitutional Vitals: Period Temp Pulse Resp BP Sys/Kirkpatrick Pulse Ox Last 24 Hr 96.6 F-98.8 F 72-101 17-20 127-166/81-104 97-99 Discharge Results Procedures and tests throughout hospitalization: Pending Orders 09/06/16 04:00 Comp Blood Count Auto Diff IN AM Labs on day of discharge: Labs from last 24 hours 09/05/16 09/05/16 05:05 05:05 WBC 12.9 H D RBC 3.90 Hgb 10.0 L Hct 31.5 L MCV 80.8 L MCH 26 L MCHC 31.7 L RDW 19.8 H Plt Count 585 H MPV 9.6 Neut % (Auto) 72.2 Lymph % (Auto) 14.6 L Motley % (Auto) 7.8 Eos % (Auto) 4.4 Baso % (Auto) 0.4 Neut # (Auto) 9.3 H Lymph # (Auto) 1.9 Motley # (Auto) 1.0 H Eos # (Auto) 0.6 Baso # (Auto) 0.1 Immature Gran % 0.6 Nucleated RBC % 0.0 Immature Gran # 0.08 Nucleated RBCs # 0.00 Sodium 139 Potassium 4.0 Chloride 107 Carbon Dioxide 20 L Anion Gap 16.0 H BUN 17 Creatinine 1.10 H GFR Calculation 44 BUN/Creatinine Ratio 15.00 Glucose 101 Calculated Osmolality 278.5 Calcium 8.6 Magnesium 2.0 DS: Provider Date of admission: 09/02/16 13:40 Primary care physician: . No PCP Attending physician on admission: Zaheer Mauricio Jr., Consults: 09/02/16 12:08 Consult to Anesthesiology [CONS] Routine Consulting Provider: Reason for Anesthesiology: Pre-op Clearance 09/02/16 12:13 Consult to Physician [CONS] Routine Comment: Consulting Provider: Consulting Provider Notified: Yes When should Consulting Provider be notified: Now Consult to Specialist Group: Hospitalist When should Consulting Provider be notified: Now Person Notified: ami hurtado called back at 14:38 Date Notified: 09/02/16 Time Notified: 14:05 Consult Notification Comment: ami hurtado called regarding consult. will call back to get further info. 09/03/16 14:04 Consult to Case Mgmt/Social Srvs [CONS] Routine Reason for Case Mgmt/Social Srvs: Rehab Home Health Equipment Consult Comment: Bedside Commode, CPM, Walker Consult to Occupational Therapy [CONS] Routine Reason for Occupational Therapy: Evaluate and Treat Consult Comment: ADL's Consult to Physical Therapy [CONS] Routine Reason for Physical Therapy: Evaluate and Treat Gait Training Consult Comment: wbat, posterior hip precautions Discharging clinician: Zaheer Mauricio Jr., Expected date of discharge: 09/05/16
[2016-09-05] MEDS: FONDAPARINUX 2.5 MG/0.5 ML SYRINGE SUBCUT SCH (09:42)
[2016-09-05] MEDS: DIAZEPAM 5 MG TABLET PO SCH (09:45)
[2016-09-05] MEDS: METOPROLOL SUCCINATE XL 25 MG TABLET PO SCH (09:46)
[2016-09-05] MEDS: GEMFIBROZIL 600 MG TABLET PO SCH (09:46)
[2016-09-05] MEDS: PRAVASTATIN 40 MG TABLET PO SCH (09:46)
[2016-09-05] MEDS: PANTOPRAZOLE 40 MG TABLET PO SCH (09:47)
[2016-09-05] MEDS: CELECOXIB 200 MG CAPSULE PO SCH (09:47)
[2016-09-05] MEDS: DOCUSATE SODIUM 100 MG CAPSULE PO SCH (09:47)
[2016-09-05] MEDS: ASPIRIN EC 81 MG TABLET PO SCH (09:47)
[2016-09-05] MEDS: PHENYTOIN ER 100 MG CAPSULE PO SCH ×2 (09:48→13:24)
[2016-09-05 11:35] VITALS: BP 136/89
[2016-09-05] MEDS ORDERED: BISACODYL 10 MG SUPP RECTAL ONE (13:04)
== END 2016-09-05 15:02 | disposition swing bed (61) | DRG 470 ==
LOC: N.3E 13:40
PROVIDERS: ADMIT Orthopaedic Surgery; ATTEND Orthopaedic Surgery